=== PATIENT | male | born 1970 | race Caucasian/White ===

== ENCOUNTER 2019-09-25 13:56 | Emergency (ER) | payer MEDICARE, OTHER ==
[~2019-09-25] VITALS: Ht 188 cm; Wt 90.7 kg
[2019-09-25 14:20] LABS: Source, Urine Clean Catch
[2019-09-25 14:22] LABS: Bilirubin, Urine Neg (Neg); Blood, Urine 1+ (Neg); Glucose Qualitative, Urine Neg (Neg); Ketones, Urine Neg (Neg); Leukocyte Esterase, Urine Neg (Neg); Nitrite, Urine Neg (Neg); Protein, Urine Neg (Neg); Specific Gravity, Urine 1.015 (1.003-1.022); Urobilinogen, Urine NORM (Normal)
[2019-09-25 14:31] LABS: Appearance, Urine Clear (Clear); Color, Urine Yellow (P-Yellow); White Blood Cells, Urine 0-2 /hpf (0-5)
[2019-09-25 14:32] LABS: Bacteria Few /hpf; Squamous Epithelial Cells Not Seen /hpf (Few)
[2019-09-25] MEDS ORDERED: Robaxin-750750 MG PO (16:13)
== END 2019-09-25 16:41 | disposition home or self-care (01) ==
LOC: ER 13:56
PROVIDERS: Emergency Medicine
DX: S51.819A Laceration without foreign body of unspecified forearm, initial encounter (principal); S39.012A Strain of muscle, fascia and tendon of lower back, initial encounter; F17.210 Nicotine dependence, cigarettes, uncomplicated; X58.XXXA Exposure to other specified factors, initial encounter
CPT/HCPCS: 72100; 81001; 99283-25

== ENCOUNTER 2020-10-26 16:44 | Emergency (ER) | payer MEDICARE, OTHER ==
[~2020-10-26] VITALS: Ht 188 cm; Wt 90.7 kg
[~2020-10-26 16:44] MED LIST: Robaxin-750750 MG PO
[2020-10-26] MEDS ORDERED: Methocarbamol500 MG PO (18:44)
[2020-10-26] MEDS ORDERED: Prednisone20 MG PO (18:44)
== END 2020-10-26 18:49 | disposition home or self-care (01) ==
LOC: ER 16:44
DX: M54.42 Lumbago with sciatica, left side (principal); M54.16 Radiculopathy, lumbar region; G89.29 Other chronic pain
CPT/HCPCS: 99283

== ENCOUNTER 2024-12-02 14:23 | Emergency (ER) | payer OTHER ==
[~2024-12-02] VITALS: Ht 188 cm; Wt 90.7 kg
[~2024-12-02 14:23] MED LIST changes: +Amoxicillin500 MG PO; +Methocarbamol500 MG PO; +Prednisone20 MG PO
[2024-12-02 14:45] VITALS: BP 110/70
[2024-12-02] MEDS ORDERED: CEPH500 PO (15:37)
[2024-12-02] MEDS ORDERED: BACTRIM DS TAB1 EAC1 PO (15:37)
== END 2024-12-02 16:04 | disposition home or self-care (01) ==
LOC: ER 14:23
DX: L03.115 Cellulitis of right lower limb (principal); L02.214 Cutaneous abscess of groin; Z79.2 Long term (current) use of antibiotics; F17.210 Nicotine dependence, cigarettes, uncomplicated; Z88.1 Allergy status to other antibiotic agents
CPT/HCPCS: 99282